=== PATIENT | female | born 1980 | race Caucasian/White ===

== ENCOUNTER 2017-02-17 15:41 | Emergency (ER) | payer BC ==
[~2017-02-17] VITALS: Ht 170.2 cm; Wt 50.8 kg
[2017-02-17 16:17] VITALS: BP 103/61
--- NOTE | 2017-02-17 16:43 | PHYS DOC ---
Past Medical History Past Medical History: Fibromyalgia, Hyperthyroid Past Surgical History: , Tonsillectomy, Tubal ligation, Other Additional Past Surgical Histo: d&c Alcohol Use: None Drug Use: None Adult General Chief Complaint Chief Complaint: LOWEREXTREMITY INJURY HPI HPI Patient is a 36 year old female with history of fibromyalgia who presents with left archer contusion that occurred 1-1/2 weeks ago as well as yesterday. Patient states one and half weeks ago a falling lawnmower hit her on the left leg. Patient states she was evaluated at urgent care and they did x-rays which were negative. She states she was carrying laundry yesterday and hit her leg on the staircase. Patient states she was supposed to have MRI of her left lower extremity done today but she never followed up. She states yesterday when she hit her leg on the staircase she noted a big bruise on the left lower extremity which is already gone. Review of Systems Review of Systems Constitutional: Denies fever or chills [] Eyes: Denies change in visual acuity, redness, or eye pain [] Musculoskeletal: bruising on the archer LLE Integument: Denies rash or skin lesions [] Neurologic: Denies headache, focal weakness or sensory changes [] Endocrine: Denies polyuria or polydipsia [] Allergies Allergies Allergies Coded Allergies Type Severity Reaction Last Updated Verified No Known Drug Allergies 10/16/15 No Physical Exam Physical Exam Constitutional: Well developed, well nourished, no acute distress, non-toxic appearance. [] HENT: Normocephalic, atraumatic, bilateral external ears normal, oropharynx moist, no oral exudates, nose normal. [] Skin: Warm, dry, no erythema, no rash. [] Back: No tenderness, no CVA tenderness. [] Extremities: Left lower extremity with no obvious deformity, no bruising on the sheen the area of concern, no tenderness on exam, negative Homans sign to the left lower extremity. +2 left pedal pulse. Full range of motion to the left lower extremity, sensation intact to the left lower extremity. Cap refill less than 2 seconds the left lower extremity. Neurologic: Alert and oriented X 3, normal motor function, normal sensory function, no focal deficits noted. [] Psychologic: Affect normal, judgement normal, mood normal. [] Current Patient Data Vital Signs Vital Signs Date Time Temp Pulse Resp B/P (MAP) Pulse Ox O2 Delivery O2 Flow Rate FiO2 02/17/17 16:17 98.1 93 18 99 Room Air 98.1 EKG EKG [] Radiology/Procedures Radiology/Procedures [] Course & Med Decision Making Course & Med Decision Making Pertinent Labs and Imaging studies reviewed. (See chart for details) Patient has left archer contusion. Recommended she follows up with the orthopedic doctor or her own doctor. Recommended she considers doing the MRI that her own doctor ordered that she never did. Recommended ibuprofen for pain. Ice and elevation encouraged. Dragon Disclaimer Dragon Disclaimer This electronic medical record was generated, in whole or in part, using a voice recognition dictation system. Departure Departure Impression: Primary Impression: Contusion, lower leg Disposition: HOME, SELF-CARE Condition: STABLE Referrals: NO PCP (PCP) Follow-up with your doctor as needed. Patient Instructions: Contusion Additional Instructions: You were seen for contusion of the left lower leg. Ice and elevate the extremity. Follow-up with your doctor as soon as you can. Consider getting the MRI done that was ordered by your doctor. Problem Qualifiers Primary Impression: Contusion, lower leg Encounter type: subsequent encounter Laterality: left Qualified Codes: S80.12XD - Contusion of left lower leg, subsequent encounter LYNN HUSTON APRN Feb 17, 2017 16:43
== END 2017-02-17 16:55 | disposition home or self-care (01) ==
LOC: ER 15:41
DX: S80.12XA Contusion of left lower leg, initial encounter (principal); E05.90 Thyrotoxicosis, unspecified without thyrotoxic crisis or storm; M79.7 Fibromyalgia; W22.09XA Striking against other stationary object, initial encounter; Y93.89 Activity, other specified; Y99.8 Other external cause status; Y92.89 Other specified places as the place of occurrence of the external cause
CPT/HCPCS: 99281